=== PATIENT | female | born 1970 | race Caucasian/White ===

== ENCOUNTER 2020-10-04 19:34 | Emergency (ER) | payer OTHER ==
[2020-10-04 19:48] VITALS: BP 104/66; PULSE 98; RESP 20; TEMP 98.7
--- NOTE | 2020-10-04 20:10 | ED ---
Recheck HPI - General Chief Complaint: Recheck/Abnormal Lab/Rx Stated Complaint: needs covid test Time Seen by Provider: 10/04/20 19:42 Source: patient, family Mode of arrival: ambulatory Limitations: no limitations - History of Present Illness Initial Comments: 49-year-old female patient presents to the emergency department requesting testing for COVID-19. States that she requires a PCR test [place]. States her father is dying and she needs to go visit him. She denies any symptoms of COVID-19. States she feels well. No physical symptoms or concerns. - Related Data Allergies Allergy/AdvReac Type Severity Reaction Status Date / Time clarithromycin [From Biaxin] Allergy Rash/Hives Verified 10/04/20 19:49 codeine Allergy Rash/Hives Verified 10/04/20 19:49 Review of Systems ROS Statement: Those systems with pertinent positive or pertinent negative responses have been documented in the HPI. ROS Other: All systems not noted in ROS Statement are negative. Past Medical History Past Medical History: No Reported History History of Any Multi-Drug Resistant Organisms: None Reported Past Surgical History: Appendectomy, Section, Cholecystectomy Past Psychological History: No Psychological Hx Reported Smoking Status: Current every day smoker Past Alcohol Use History: Occasional Past Drug Use History: None Reported General Exam Limitations: no limitations General appearance: alert, in no apparent distress Respiratory exam: Present: normal lung sounds bilaterally. Absent: respiratory distress, wheezes, rales, rhonchi, stridor Cardiovascular Exam: Present: regular rate, normal rhythm, normal heart sounds. Absent: systolic murmur, diastolic murmur, rubs, gallop, clicks Neurological exam: Present: alert, oriented X3, CN II-XII intact Psychiatric exam: Present: normal affect, normal mood Skin exam: Present: warm, dry, intact, normal color. Absent: rash Course Vital Signs 10/04/20 19:46 Temperature 98.7 F Pulse Rate 98 Respiratory 20 Rate Blood Pressure 104/66 O2 Sat by Pulse 97 Oximetry Medical Decision Making - Medical Decision Making 49-year-old female patient presented to the emergency department requesting Covid testing. Reports no symptoms or physical concerns today. She tested negative. She'll be discharged follow-up with her primary care physician as needed. Return parameters discussed in detail. She verbalizes understanding and agrees with this plan. Case discussed my attending Dr. Corbin. - Lab Data Lab Results 10/04/20 Range/Units 20:04 Coronavirus (PCR) Not Detected (Not Detectd) Disposition Clinical Impression: Encounter for laboratory testing for COVID-19 virus Disposition: HOME SELF-CARE Condition: Good Instructions (If sedation given, give patient instructions): Coronavirus Disease 2019 (COVID-19) Is patient prescribed a controlled substance at d/c from ED?: No Referrals: Nonstaff,Physician [Primary Care Provider] - 1-2 days Time of Disposition: 20:10
== END 2020-10-04 20:55 | disposition home or self-care (01) ==
LOC: EC 19:34
DX: Z20.822 Contact with and (suspected) exposure to COVID-19 (principal); F17.200 Nicotine dependence, unspecified, uncomplicated; Z90.89 Acquired absence of other organs; Z90.49 Acquired absence of other specified parts of digestive tract
CPT/HCPCS: 87635; 99282